=== PATIENT | female | born 1970 | race Caucasian/White ===

== ENCOUNTER 2018-03-27 15:41 | Inpatient (IN) | payer MEDICAID ==
[~2018-03-27] VITALS: Ht 160 cm; Wt 63.5 kg
[2018-03-27] MEDS ORDERED: LIPITOR40 MG PO (16:02)
[2018-03-27] MEDS ORDERED: RANITIDINE HCL150 M1 PO (16:02)
[2018-03-27] MEDS ORDERED: DIOVAN40 MG PO (16:03)
[2018-03-27] MEDS ORDERED: FLUTICASONE PRO16 GM NASAL (16:03)
[2018-03-27] MEDS ORDERED: ZYPREXA10 MG PO (16:04)
[2018-03-27] MEDS ORDERED: ULTRAM50 MG PO (16:04)
[2018-03-27] MEDS ORDERED: ALBUTEROL SULF8.5 GM INH (16:04)
[2018-03-27] MEDS ORDERED: PROPRANOLOL HCL20 MG PO (16:05)
[2018-03-27] MEDS ORDERED: ELAVIL75 MG PO (16:05)
[2018-03-27] MEDS ORDERED: LEXAPRO20 MG PO (16:05)
[2018-03-27] MEDS ORDERED: XANAX0.5 MG PO (16:06)
[2018-03-27 17:07] LABS: BASOPHILS 0.3 % (0-2); EOSINOPHILS 2.3 % (0-7); HEMATOCRIT 39.8 % (36.0-48.0); HEMOGLOBIN 13.4 g/dL (12-16); LYMPHOCYTES 47.7 % (15-50); MCH 31.8 pg (26.0-34.0); MCHC 33.7 g/dL (31.0-37.0); MCV 94.3 fL (80.0-100.0); MEAN PLATELET VOLUME 11.5 fL (7.4-10.4); MONOCYTES 6.5 % (2-11); NEUTROPHILS 43.2 % (40-80); PLATELET COUNT 148 10x3/uL (130-400); RBC 4.22 10x6/uL (4.00-5.40); RDW 13.6 % (11.5-14.5); WBC 6.8 10x3/uL (4.8-10.8)
[2018-03-27 17:37] LABS: APTT 30.2 SECONDS (22.8-39.4); INR 1.09 (0.85-1.17); PROTIME 13.6 SECONDS (11.6-15.0)
[2018-03-27 17:39] LABS: ALBUMIN 3.4 g/dL (3.4-5.0); ALKALINE PHOSPHATASE 100 U/L (46-116); ALT (SGPT) 23 U/L (10-68); BILIRUBIN - TOTAL 0.37 mg/dL (0.2-1.3); CALC OSMOLALITY 278 mosm/kg (275-300); CALCIUM 8.6 mg/dL (8.5-10.1); CARBON DIOXIDE 25.2 mmol/L (21.0-32.0); CHLORIDE - SERUM 103 mmol/L (98-107); CREATININE - SERUM 1.1 mg/dL (0.6-1.3); D-DIMER-QUANTITATIVE < 0.27 ug/mLFEU (0.20-0.54); GLUCOSE 84 mg/dL (74-106); POTASSIUM - SERUM 3.9 mmol/L (3.5-5.1); PROTEIN - SERUM 6.8 g/dL (6.4-8.2); SODIUM 140 mmol/L (136-145); UREA NITROGEN 15 mg/dL (7-18); eGFR NON AFRICAN AMERICAN 56 mL/min (90-120)
[2018-03-27 17:51] LABS: CREATINE KINASE 84 UL (21-215); MAGNESIUM - SERUM 1.8 mg/dL (1.8-2.4)
[2018-03-27 17:56] LABS: TROPONIN-I < 0.017 ng/mL (0.000-0.060)
[2018-03-27 20:00] VITALS: BP 140/75; BP 187/88
[2018-03-28] VITALS: BP 140/75
[2018-03-28 04:00] VITALS: BP 148/80
[2018-03-28 05:01] VITALS: BP 140/75; BMI 24.8
[2018-03-28 05:47] LABS: BASOPHILS 0.5 % (0-2); EOSINOPHILS 2.9 % (0-7); HEMATOCRIT 39.8 % (36.0-48.0); HEMOGLOBIN 13.4 g/dL (12-16); IMMATURE GRANULOCYTES 0.2 % (0-5); LYMPHOCYTES 49.8 % (15-50); MCH 31.4 pg (26.0-34.0); MCHC 33.7 g/dL (31.0-37.0); MCV 93.2 fL (80.0-100.0); MEAN PLATELET VOLUME 11.6 fL (7.4-10.4); MONOCYTES 7.8 % (2-11); NEUTROPHILS 38.8 % (40-80); PLATELET COUNT 157 10x3/uL (130-400); RBC 4.27 10x6/uL (4.00-5.40); RDW 13.5 % (11.5-14.5); WBC 6.2 10x3/uL (4.8-10.8)
[2018-03-28 06:28] LABS: CALC OSMOLALITY 276 mosm/kg (275-300); CALCIUM 8.6 mg/dL (8.5-10.1); CARBON DIOXIDE 26.1 mmol/L (21.0-32.0); CHLORIDE - SERUM 101 mmol/L (98-107); CKMB 0.1 U/L (0.0-3.6); CREATINE KINASE 80 UL (21-215); GLUCOSE 87 mg/dL (74-106); POTASSIUM - SERUM 3.8 mmol/L (3.5-5.1); SODIUM 139 mmol/L (136-145); UREA NITROGEN 13 mg/dL (7-18); eGFR NON AFRICAN AMERICAN 63 mL/min (90-120)
[2018-03-28 06:29] LABS: TROPONIN-I < 0.017 ng/mL (0.000-0.060)
[2018-03-28 08:37] VITALS: BP 130/67
[2018-03-28 11:56] VITALS: BP 110/64
[2018-03-28 12:05] VITALS: Ht 160 cm; Wt 63.5 kg
[2018-03-28 15:20] VITALS: BP 118/79
--- NOTE | 2018-03-28 16:52 | MORECARE ---
CASE MANAGEMENT DISCHARGE SUMMARY PATIENT: STEFANO CHRISTIANSON UNIT: [id number] ADM DATE: 03/27/18 AGE: 47 : 70 SEX: F ROOM/BED: D.2104 AUTHOR: МАРИНА LEWIS PHYSICIAN: REFERRING PHYSICIAN: GENO KENT MD DATE OF SERVICE: 03/28/18 Discharge Plan Patient Name: STEFANO CHRISTIANSON Facility: [facility]:[place] : 1970 Planned Disposition: Outpatient PT\OT Anticipated Discharge Date: 03/28/18 Discharge Date: Expected LOS: 1 Initial Reviewer: [email or web address] Initial Review Date: 03/27/2018 Generated: 03/28/18 5:51 pm DCPIA - Discharge Planning Initial Assessment Updated by [email or web address]: Berny Fritz on 03/28/18 4:46 pm * Is the patient Alert and Oriented? Yes * How many steps to enter\exit or inside your home? * PCP DR. WALDO MAN * Pharmacy [facility]. * Preadmission Environment Home with Family * ADLs Independent * Equipment None * Other Equipment NO MEDICAL EQUIPMENT PROVIDER PREFERENCE * List name and contact numbers for known caregivers / representatives who currently or will assist patient after discharge: MILLICENT CHRISTIANSON, SPOUSE, * Verbal permission to speak to the caregivers and representatives has been obtained from the patient. Yes * Community resources currently utilized None * Please name any agencies selected above. NONE * Additional services required to return to the preadmission environment? Yes * Can the patient safely return to the preadmission environment? Yes * Has this patient been hospitalized within the prior 30 days at any hospital? No Patient Name: STEFANO CHRISTIANSON Page [id number] at 1652 All edits/amendments must be made on the electronic document DICTATION DATE: 03/28/181650 HANDBOOK WRITER: CLEMENTE 03/28/181650 RPT#: [id number] DC DATE: STATUS: ADM IN [facility] [address] [place] [address] END OF REPORT
--- NOTE | 2018-03-28 17:01 | MORECARE ---
CASE MANAGEMENT DISCHARGE SUMMARY PATIENT: STEFANO CHRISTIANSON UNIT: [id number] ADM DATE: 03/27/18 AGE: 47 : 70 SEX: F ROOM/BED: D.2104 AUTHOR: JOSHUA,DOC PHYSICIAN: REFERRING PHYSICIAN: GENO KENT MD DATE OF SERVICE: 03/28/18 Discharge Plan Patient Name: STEFANO CHRISTIANSON Facility: [facility]:[place] : 1970 Planned Disposition: Outpatient PT\OT Anticipated Discharge Date: 03/28/18 Discharge Date: Expected LOS: 1 Initial Reviewer: [email or web address] Initial Review Date: 03/27/2018 Generated: 03/28/18 6:01 pm Comments DCP- Discharge Planning Updated by [email or web address]: Berny Fritz on 03/28/18 3:[address] Patient Name: STEFANO CHRISTIANSON Admission Status: ER Accout number: [id number] Admission Date: 03-27-2018 : 1970 Admission Diagnosis: Attending: GENO KENT Current LOS: 1 Anticipated DC Date: 03-28-2018 Planned Disposition: Outpatient PT\OT Primary [facility] PLANNED EXTERNAL PROVIDER: [facility] OUT[facility] Discharge Planning Comments: [facility], MEDICARE REHAB BED DCP follow-up note: CM RECEIVED ORDER FOR INPATIENT REHAB PRESCREENING; CM SPOKE TO THERAPIST WHO INFORMED CM THAT PT AND SPOUSE WANT OUTPATIENT THERAPY AND THERAPIST SUPPORTS THIS PLAN. CM MET WITH PT AND SPOUSE IN ROOM TO DISCUSS DISCHARGE PLANNING AND NEEDS. STEFANO CHRISTIANSON provided verbal consent to discuss current and ongoing needs with/in the presence of: SPOUSE, MILLICENT. PT REPORTS LIVING AT HOME INDEPENDENTLY WITH SPOUSE. PT HAS NO MEDICAL EQUIPMENT AND NO OUTSIDE SERVICES ASSISTING IN THE HOME. CM DISCUSSED AVAILABILITY OF HOME HEALTH, REHAB SERVICES AND MEDICAL EQUIPMENT. PT DOES NOT WANT TO STAY FOR INPATIENT REHAB, DECLINES RESIDENTIAL FACILITY FOR REHAB PLACEMENT. PT WANTS OUTPATIENT PHYSICAL THERAPY DOES PT'S SPOUSE. THEY DO NOT HAVE PREFERENCE ON PROVIDER OR LOCATION. PT'S SPOUSE WILL PICK PT UP FOR DISCHARGE HOME AND THEY WANT TO GO HOME TODAY. CM CALLED AND SPOKE TO [facility] OF [facility] WHO PROVIDED BLANK ORDER. CM SPOKE TO DR. HODGES WHO COMPLETED ORDER FOR OUTPATIENT THERAPY SERVICES. CM FAXED BACK TO [facility]ENN[facility] AT [phone]. CM SPOKE TO KENNEDY WHO ADVISED SHE WILL CALL PT TOMORROW TO SCHEDULE OUTPATIENT APPOINTMENT. PT AND SPOUSE NOTIFIED WHO DENIED FURTHER NEEDS. PT TO DISCHARGE HOME WITH SPOUSE, [facility] OF [facility] WILL CONTACT PT VIA PHONE TOMORROW, 03-29-18, TO SCHEDULE OUTPATIENT THERAPY APPOINTMENT. Berny Fritz, CASE MANAGEMENT DCPIA - Discharge Planning Initial Assessment Updated by [email or web address]: Berny Fritz on 03/28/18 4:46 pm * Is the patient Alert and Oriented? Yes * How many steps to enter\exit or inside your home? * PCP DR. WALDO MAN * Pharmacy [facility]. * Preadmission Environment Home with Family * ADLs Independent * Equipment None * Other Equipment NO MEDICAL EQUIPMENT PROVIDER PREFERENCE * List name and contact numbers for known caregivers / representatives who currently or will assist patient after discharge: MILLICENT CHRISTIANSON, SPOUSE, * Verbal permission to speak to the caregivers and representatives has been obtained from the patient. Yes * Community resources currently utilized None * Please name any agencies selected above. NONE * Additional services required to return to the preadmission environment? Yes * Can the patient safely return to the preadmission environment? Yes * Has this patient been hospitalized within the prior 30 days at any hospital? No Last DP export: 03/28/18 3:52 pm Patient Name: STEFANO CHRISTIANSON Page [id number] at 1701 All edits/amendments must be made on the electronic document DICTATION DATE: 03/28/181699 GROUP CAPTAIN: CLEMENTE 03/28/181699 RPT#: [id number] DC DATE: STATUS: ADM IN [facility] [address] [place] [address] END OF REPORT
== END 2018-03-28 17:38 | disposition home or self-care (01) | DRG 65 ==
LOC: D.ER 15:41 → D.EDHOLD 19:42 → D.M2 19:42
PROVIDERS: Family Medicine; ADMIT Internal Medicine Nephrology
DX: I63.9 Cerebral infarction, unspecified (principal); F17.213 Nicotine dependence, cigarettes, with withdrawal; R29.810 Facial weakness; R47.81 Slurred speech; R51 Headache; I10 Essential (primary) hypertension; E78.5 Hyperlipidemia, unspecified; I25.10 Atherosclerotic heart disease of native coronary artery without angina pectoris; F41.9 Anxiety disorder, unspecified; F32.9 Major depressive disorder, single episode, unspecified; R40.2363 Coma scale, best motor response, obeys commands, at hospital admission; R40.2143 Coma scale, eyes open, spontaneous, at hospital admission; R40.2253 Coma scale, best verbal response, oriented, at hospital admission